=== PATIENT | female | born 1950 | race Native Hawaiian/Other Pacific Islander ===

== ENCOUNTER 2016-12-02 01:48 | Emergency (ER) | payer OTHER ==
[~2016-12-02] VITALS: Ht 160 cm; Wt 83.0 kg
[~2016-12-02 01:48] MED LIST: ACET7.5T70 PO; ALLEGRA ALRG180 M1 PO; ASA LOW STR81 MG PO; CARV12.5 PO; CYCL10TA35 PO; DICL75TA4 PO; HYDR12.54; MEDROL DOSEPAK4 MG OR; MICROZIDE12.5 MG OR; MISO200T2 PO; OMEP20CA PO; RANI150T78 PO; SIMV40TA57; TRAM50TA PO; VALS80CA2 PO
[2016-12-02 03:05] LABS: PLATELET COUNT 362 K/uL (152-353)
[2016-12-02 03:17] LABS: POTASSIUM 3.3 mmol/L (3.6-5.2)
[2016-12-02 05:42] VITALS: BP 144/99; TEMP 98.5
== END 2016-12-02 05:44 | disposition short-term general hospital (02) ==
LOC: ED 01:48
PROVIDERS: Emergency Medicine
DX: R07.89 Other chest pain (principal); R00.0 Tachycardia, unspecified; I24.9 Acute ischemic heart disease, unspecified; R06.02 Shortness of breath
CPT/HCPCS: 36415; 80053; 82550; 83880; 84484; 85027; 85610; 85730; 93005; 96374; 96375; 99285; J1650; J2270; J2405

== ENCOUNTER 2016-12-02 05:56 | Outpatient (CLI) | payer OTHER | END 2016-12-02 07:03 | disposition short-term general hospital (02) | LOC: AMB 05:56 | DX: R07.89 Other chest pain (principal); R00.0 Tachycardia, unspecified; I24.9 Acute ischemic heart disease, unspecified; R06.02 Shortness of breath | CPT/HCPCS: A0425; A0429 ==

== ENCOUNTER 2017-03-19 13:02 | Outpatient (CLI) | payer OTHER | END 2017-03-19 20:03 | disposition home or self-care (01) | LOC: US 13:02 | DX: L03.115 Cellulitis of right lower limb (principal) ==

== ENCOUNTER 2017-08-25 09:31 | Outpatient (CLI) | payer OTHER ==
[2017-08-25 10:13] LABS: PLATELET COUNT 298 K/uL (152-353)
[2017-08-25 13:17] LABS: POTASSIUM 3.5 mmol/L (3.6-5.2)
== END 2017-08-25 19:08 | disposition home or self-care (01) ==
LOC: LABW 09:31
PROVIDERS: Internal Medicine
DX: E11.9 Type 2 diabetes mellitus without complications (principal)
CPT/HCPCS: 36415; 80053; 80061; 81000; 82043; 82570; 83036; 84439; 84443; 85027

== ENCOUNTER 2017-09-08 08:16 | Outpatient (CLI) | payer OTHER | END 2017-09-08 19:23 | disposition home or self-care (01) | LOC: RAD 08:16 | DX: M54.5 Low back pain (principal); M25.562 Pain in left knee ==

== ENCOUNTER 2018-07-20 10:50 | Outpatient (CLI) | payer OTHER | END 2018-07-20 21:23 | disposition home or self-care (01) | LOC: MAMMO 10:50 | DX: Z12.31 Encounter for screening mammogram for malignant neoplasm of breast (principal) ==

== ENCOUNTER 2018-11-01 10:55 | Outpatient (CLI) | payer OTHER | END 2018-11-01 20:54 | disposition home or self-care (01) | LOC: RAD 10:55 | DX: J40 Bronchitis, not specified as acute or chronic (principal) ==

== ENCOUNTER 2019-04-29 09:47 | Outpatient (CLI) | payer OTHER ==
[2019-04-29 10:23] LABS: PLATELET COUNT 250 K/uL (152-353)
[2019-04-29 10:41] LABS: POTASSIUM 3.4 mmol/L (3.6-5.2)
== END 2019-04-29 21:42 | disposition home or self-care (01) ==
LOC: LABW 09:47
PROVIDERS: Internal Medicine
DX: E11.9 Type 2 diabetes mellitus without complications (principal); R82.998 Other abnormal findings in urine; M19.90 Unspecified osteoarthritis, unspecified site
CPT/HCPCS: 36415; 80053; 80061; 81000; 83036; 84439; 84443; 85027; 87086; 87088

== ENCOUNTER 2019-11-17 09:39 | Outpatient (CLI) | payer OTHER ==
[2019-11-17 10:19] LABS: PLATELET COUNT 257 K/uL (152-353)
[2019-11-17 10:43] LABS: POTASSIUM 3.5 mmol/L (3.6-5.2)
== END 2019-11-17 19:11 | disposition home or self-care (01) ==
LOC: LABW 09:39
PROVIDERS: Internal Medicine
DX: E11.9 Type 2 diabetes mellitus without complications (principal); R82.998 Other abnormal findings in urine
CPT/HCPCS: 36415; 80053; 80061; 81000; 82043; 82570; 83036; 84439; 84443; 85027; 87086; 87088

== ENCOUNTER 2020-03-22 10:05 | Outpatient (CLI) | payer OTHER ==
[2020-03-22 11:42] LABS: PLATELET COUNT 307 K/uL (152-353)
[2020-03-22 11:50] LABS: POTASSIUM 2.7 mmol/L (3.6-5.2)
== END 2020-03-22 21:36 | disposition home or self-care (01) ==
LOC: RAD 10:05
PROVIDERS: Internal Medicine
DX: J01.00 Acute maxillary sinusitis, unspecified (principal)
CPT/HCPCS: 36415; 80053; 81000; 85027

== ENCOUNTER 2020-03-26 14:38 | Outpatient (CLI) | payer OTHER | END 2020-03-26 21:16 | disposition home or self-care (01) | LOC: LAB 14:38 | DX: J01.00 Acute maxillary sinusitis, unspecified (principal) | CPT/HCPCS: 81000 ==

== ENCOUNTER 2020-11-02 08:04 | Outpatient (CLI) | payer OTHER ==
[2020-11-02 08:44] LABS: PLATELET COUNT 252 K/uL (152-353)
[2020-11-02 09:08] LABS: POTASSIUM 3.1 mmol/L (3.6-5.2)
== END 2020-11-02 19:23 | disposition home or self-care (01) ==
LOC: LABW 08:04
PROVIDERS: ATTEND Internal Medicine
DX: E11.9 Type 2 diabetes mellitus without complications (principal)
CPT/HCPCS: 36415; 80053; 80061; 81000; 82043; 83036; 85027

== ENCOUNTER 2021-04-08 10:23 | Outpatient (CLI) | payer OTHER | END 2021-04-08 21:24 | disposition home or self-care (01) | LOC: LAB 10:23 | PROVIDERS: ATTEND Internal Medicine | DX: N39.0 Urinary tract infection, site not specified (principal) | CPT/HCPCS: 81000; 87077; 87086; 87088; 87186 ==

== ENCOUNTER 2021-09-17 14:16 | Outpatient (CLI) | payer OTHER | END 2021-09-17 18:54 | disposition home or self-care (01) | LOC: CT 14:16 | PROVIDERS: ATTEND Internal Medicine | DX: R31.29 Other microscopic hematuria (principal) ==

== ENCOUNTER 2022-04-14 12:11 | Outpatient (CLI) | payer OTHER ==
[2022-04-14 12:34] LABS: PLATELET COUNT 239 K/uL (152-353)
[2022-04-14 12:57] LABS: POTASSIUM 3.5 mmol/L (3.6-5.2); SODIUM 139 mmol/L (136-145)
== END 2022-04-14 18:51 | disposition home or self-care (01) ==
LOC: LAB 12:11
PROVIDERS: ATTEND Internal Medicine
DX: E11.9 Type 2 diabetes mellitus without complications (principal); I25.10 Atherosclerotic heart disease of native coronary artery without angina pectoris; R82.90 Unspecified abnormal findings in urine
CPT/HCPCS: 80053; 80061; 81002; 81015; 82043; 83036; 84439; 84443; 85027; 87086; 87088

== ENCOUNTER 2022-07-10 15:03 | Outpatient (CLI) | payer OTHER | END 2022-07-10 22:10 | disposition home or self-care (01) | LOC: LABW 15:03 | PROVIDERS: ATTEND Internal Medicine Cardiovascular Disease | DX: N39.0 Urinary tract infection, site not specified (principal) | CPT/HCPCS: 81000; 87086; 87088 ==

== ENCOUNTER 2022-10-18 08:36 | Outpatient (CLI) | payer OTHER ==
[2022-10-18 09:08] LABS: POTASSIUM 3.4 mmol/L (3.6-5.2)
== END 2022-10-18 21:43 | disposition home or self-care (01) ==
LOC: LABW 08:36
PROVIDERS: ATTEND Internal Medicine
DX: E11.9 Type 2 diabetes mellitus without complications (principal)
CPT/HCPCS: 36415; 80053; 80061; 83036

== ENCOUNTER 2022-12-17 11:03 | Outpatient (CLI) | payer OTHER | END 2022-12-17 22:58 | disposition home or self-care (01) | LOC: RAD 11:03 → LAB 11:03 | PROVIDERS: ATTEND Internal Medicine | DX: M54.59 Other low back pain (principal); N39.0 Urinary tract infection, site not specified | CPT/HCPCS: 87088 ==